=== PATIENT | female | born 1980 | race Caucasian/White ===

== ENCOUNTER 2016-06-30 01:33 | Emergency (ER) | payer BC ==
[2016-06-30 01:40] VITALS: BP 114/65; PULSE 70; TEMP 97.9; BMI 25.0
--- NOTE | 2016-06-30 01:59 | PDOC ---
History of Present Illness - General Chief Complaint: Cold Symptoms Stated Complaint: COUGH Time Seen by Provider: 06/30/16 01:48 History Source: Patient Exam Limitations: No Limitations - History of Present Illness Initial Comments: 06/30/16 01:59 This is a 36-year-old female, is also 20 weeks by dates and comes in complaining of persistent cough that is been intermittent 2 months now. Patient denies any fevers or chills. Patient denies that the cough is not productive at this time. Patient said she has been coughing so much that the muscles of her chest wall and upper abdominal area are sore and she is concerned. She denies any fevers or chills. PAST MEDICAL HISTORY: no significant history PAST SURGICAL HISTORY: no significant history FAMILY HISTORY: no pertinant history SOCIAL HISTORY: Pt lives with family and is employed. MEDICATIONS: reviewed ALLERGIES: As per nursing notes Review of Systems General: No fevers or chills, no weakness, no weight loss HEENT: No change in vision. No sore throat,. No ear pain CardioVascular: No chest pain or shortness of breath Respiratory:+ cough, no wheezing. Gastrointestinal: no nausea, vomitting, diarrhea or constipation, No rectal bleeding Genitourinary: No dysuria, hematuria, or frequency Musculoskeletal: No joint or muscle pain or swelling Neurologic: No headache, vertigo, dizziness or loss of consciousness Psychiatric: nor depression Skin: No rashes or easy bruising Endocrine: no increased thirst or abnormal weight change Allergic: no skin or latex allergy All other systems reviewed and normal Exam: General: Well-nourished well-developed individual, no acute distress HEENT: Throat: Normal, tonsils normal, no erythema or exudate Neck: Supple, no meningeal signs, no lymphadenopathy Eyes::Pupils equal reactive and round, extraocular motion intact Chest: Nontender to palpation Cardiac: S1-S2 normal, regular rate and rhythm, no murmurs rubs or gallops Respiratory: Lungs clear to auscultation bilateral Abdomen: Soft, nondistended, normal bowel sounds, nontender to palpation diffusely Extremities: Warm, dry, no cyanosis, clubbing, or edema Skin: No rashes Neuro: Alert and oriented x3, nonfocal exam, grossly intact, normal gait Psych: Normal mood and affect 06/30/16 02:01 Assessment and plan: This is a 36-year-old female who comes in with persistent cough intermittent 2 months. Patient's cough is nonproductive at this time. She has no fevers or chills. Patient is 20 weeks so is limited as to what she can take however a prescription for Tessalon Perles was called into her pharmacy and patient well follow-up with her OB tomorrow to make sure that her OB is okay with her taking the medication. Patient discharged home. Past History - Past Medical History Allergies/Adverse Reactions: Allergies Allergy/AdvReac Type Severity Reaction Status Date / Time No Known Allergies Allergy Unverified 06/30/16 01:36 Home Medications: Ambulatory Orders Benzonatate [Tessalon Pearls -] 100 mg PO TID #21 capsule 06/30/16 Levothyroxine [Synthroid -] 175 mcg PO DAILY 06/30/16 Vit Calc,Iron,Folic [ Vitamins] 1 each PO DAILY 06/30/16 Thyroid Disease: Yes Other medical history: 5 MONTHS - Psycho/Social/Smoking Cessation Hx Anxiety: No Suicidal Ideation: No Smoking History: Never smoked *Physical Exam - Vital Signs Last Vital Signs Temp Pulse Resp BP Pulse Ox 97.9 F 70 16 114/65 100 06/30/16 01:38 06/30/16 01:38 06/30/16 01:38 06/30/16 01:38 06/30/16 01:38 *DC/Admit/Observation/Transfer Diagnosis at time of Disposition: Cough - Discharge Dispostion Disposition: HOME Condition at time of disposition: Stable Admit: No - Prescriptions Prescriptions: Benzonatate [Tessalon Pearls -] 100 mg PO TID #21 capsule - Referrals Referrals: STAFF,NOT ON [Primary Care Provider] - - Patient Instructions Additional Instructions: Call your OB doctor in the morning and discuss with her the cough and the muscle soreness, and whether or not they want you to take the Tessalon Perles that I called a prescription in for. Return to the emergency department immediately with ANY new, persistent or worsening symptoms. Continue any medications as previously prescribed by your physician. . Please make sure your doctor reviews the results of your emergency evaluation. Thank you for coming to the Emergency Department today for your care. It was a pleasure to see you today. Please note that your evaluation is INCOMPLETE until you follow-up with your doctor.
== END 2016-06-30 02:00 | disposition home or self-care (01) ==
LOC: FER 01:33
DX: O26.892 Other specified pregnancy related conditions, second trimester (principal); Z3A.20 20 weeks gestation of pregnancy; R05 Cough; R07.9 Chest pain, unspecified
CPT/HCPCS: 99281-25